=== PATIENT | male | born 1985 | race Caucasian/White ===

== ENCOUNTER 2016-07-29 09:16 | Emergency (ER) | payer SELFPAY ==
[2016-07-29] MEDS ORDERED: Proparacaine 0.5% Ophth Soln 15 ML Bottle EYERT ONE (09:52)
--- NOTE | 2016-07-29 10:05 | EDM.PDOC ---
ED HPI EYE COMPLAINT - General Chief Complaint: Eye Problems Stated Complaint: RT EYE HURTS Time Seen by Provider: 07/29/16 09:50 - History of Present Illness INITIAL COMMENTS - FREE TEXT/NARRATIVE: HISTORY AND PHYSICAL: History of present illness: The patient is a healthy 30-year-old male who presents with complaints of right eyelid swelling and crusting/drainage from the area for the last 2 days. The patient says he does not have any visual blurriness in the right eye and doesn' t have any headache or eye pain. Patient states that he only has discomfort to his eyelid. He has not noticed any redness to the eye itself injection of the sclera and he does not wear glasses or contact lenses. Patient denies any recent head and face or eye trauma and states that at work he does work with chemicals and he could have done something into his eye. The patient denies any foreign body sensation or potential foreign body in his eye. Patient says that when he sleeps he does wake up with a lot of crusting and drainage as well. Review of systems: As per history of present illness and below otherwise all systems reviewed and negative. Past medical history: As per history of present illness and as reviewed below otherwise noncontributory. Surgical history: As per history of present illness and as reviewed below otherwise noncontributory. Social history: No reported history of drug or alcohol abuse. Family history: As per history of present illness and as reviewed below otherwise noncontributory. Physical exam: General: Well-developed well-nourished man who is nontoxic and benefits of been reviewed by me. Visual acuity is right eye 20/15 left eye 20/15 both eyes 20/15 HEENT: Atraumatic, normocephalic, pupils reactive, sclera are noninjected but there is some conjunctival erythema which is mild on the right, negative for conjunctival pallor or scleral icterus, mucous membranes moist, throat clear, neck supple, nontender, trachea midline. EOMs are intact, there is no periorbital erythema or crepitus/bony deformities appreciated, there is no sinus tenderness on palpation. The upper eyelid on the right side edematous originating from the lid margin and extending upward but does not extend to the outer orbital area. There is no gross crusting or drainage appreciated. There is no gross foreign body appreciated on examination Lungs: Clear to auscultation, breath sounds equal bilaterally, chest nontender. Heart: S1S2, regular, negative for clicks, rubs, or JVD. Abdomen: Soft, nondistended, nontender. NABS Genitourinary: Deferred. Rectal: Deferred. Extremities: Atraumatic, negative for cords or calf pain. Neurovascular unremarkable. Neuro: Awake, alert, oriented. Cranial nerves II through XII unremarkable. Cerebellum unremarkable. Motor and sensory unremarkable throughout. Exam nonfocal. Diagnostics: Usual acuity, please see above Therapeutics: [] Impression: Right eye blepharitis Definitive disposition and diagnosis as appropriate pending reevaluation and review of above. - Related Data Allergies/ADRs: Allergies No Known Allergies Allergy (Verified 07/29/16 09:37) Home Meds: Ambulatory Orders Medication Instructions Recorded Confirmed . [No Known Home Meds] 07/29/16 07/29/16 Past Medical History - Past Health History Medical/Surgical History: Denies Medical/Surgical History Social & Family History - Family History Family Medical History: Noncontributory - Tobacco Use Smoking Status *Q: Never Smoker - Recreational Drug Use Recreational Drug Use: No ED ROS GENERAL - Review of Systems Review Of Systems: ROS reveals no pertinent complaints other than HPI. ED EXAM GENERAL W FULL EYE - Physical Exam Exam: See Below (See dictation) Course - Vital Signs Last Recorded V/S: Last Vital Signs Temp 36.7 C 07/29/16 09:37 Pulse 66 07/29/16 09:37 Resp 18 07/29/16 09:37 BP 121/77 07/29/16 09:37 Pulse Ox 97 07/29/16 09:37 - Orders/Labs/Meds Meds: Medications Discontinued Medications Generic Name Dose Route Start Last Admin Trade Name Kemi PRN Reason Stop Dose Admin Proparacaine HCl 2 ml 07/29/16 09:52 Proparacaine 0.5% Ophth Soln EYERT 07/29/16 09:53 ONETIME ONE Departure - Departure Time of Disposition: 10:03 Disposition: Home, Self-Care 01 Condition: good Clinical Impression: Blepharitis of eyelid of right eye Qualifiers: Blepharitis type: unspecified type Eyelid: upper Qualified Code(s): H01.001 - Unspecified blepharitis right upper eyelid Forms: ED Department Discharge Additional Instructions: The following information is given to patients seen in the emergency department who are being discharged to home. This information is to outline your options for follow-up care. We provide all patients seen in our emergency department with a follow-up referral. The need for follow-up, as well as the timing and circumstances, are variable depending upon the specifics of your emergency department visit. If you don't have a primary care physician on staff, we will provide you with a referral. We always advise you to contact your personal physician following an emergency department visit to inform them of the circumstance of the visit and for follow-up with them and/or the need for any referrals to a consulting specialist. The emergency department will also refer you to a specialist when appropriate. This referral assures that you have the opportunity for followup care with a specialist. All of these measure are taken in an effort to provide you with optimal care, which includes your followup. Under all circumstances we always encourage you to contact your private physician who remains a resource for coordinating your care. When calling for followup care, please make the office aware that this follow-up is from your recent emergency room visit. If for any reason you are refused follow-up, please contact the [facility] emergency department at and ask to speak to the emergency department charge nurse. [facility] Primary care- Internal Medicine and Family [address] [address] [facility] [address] [place] [id number] Please use ointment to eyelid margin as we discussed an as directed. Expect ointment to get in and around the eye. Please avoid rubbing eye vigorously and if needed cleanse with mild water and pat dry. Please call and followup with family DrKaren and/or the group billing coordinator using resources given to today. Return to ER as needed and as discussed
[2016-07-29] MEDS ORDERED: Tobramycin 0.3% Ophth Oint 3.5 GM Tube EYERT STA (10:31)
[2016-07-29 11:37] VITALS: BP 121/77
== END 2016-07-29 10:20 | disposition home or self-care (01) ==
LOC: MERGE 09:16 → MW.ED 09:16
DX: H01.001 Unspecified blepharitis right upper eyelid (principal)
CPT/HCPCS: 99282; A9270; 99283

== ENCOUNTER 2019-04-26 14:41 | Emergency (ER) | payer BC ==
[2019-04-26] MEDS ORDERED: Diphtheria,Pertussis(Acell),Tetanus Vaccine 0.5 ML Syringe IM ONE (15:00)
[2019-04-26] MEDS ORDERED: Bupivacaine 0.5% 10 ML SDV INJECT ONE (15:00)
[2019-04-26] MEDS ORDERED: Bupivacaine 0.5% 10 ML SDV ONE (15:28)
--- NOTE | 2019-04-26 15:39 | CR ---
Left tibia and fibula: 2 views of the left tibia and fibula were obtained. Foreign body is identified within the soft tissues of the approximate mid one third level of the lower left extremity. Foreign body is located laterally and anteriorly. Foreign body measures around 8.5 mm. Surrounding soft tissue swelling is noted. No fracture or other bony abnormality is appreciated. Impression: 1. Soft tissue foreign body as noted above. 2. No acute bony abnormality is seen. Diagnostic code #3 This report was dictated in [place] Standard Time
--- NOTE | 2019-04-26 15:52 | EDM.PDOC ---
ED HPI GENERAL MEDICAL PROBLEM - General Chief Complaint: Laceration Stated Complaint: CUT ON LEG Time Seen by Provider: 04/26/19 14:55 Source of Information: Reports: Patient History Limitations: Reports: No Limitations - History of Present Illness INITIAL COMMENTS - FREE TEXT/NARRATIVE: HISTORY OF PRESENT ILLNESS: Patient is a 33-year-old male who presents to the Emergency Department with complaints of laceration. Incident occurred at approximately 11:00am today while using a sledgehammer a piece of metal flew off and entered his left anterior tibial area resulting in a laceration. Alleviating factors: none. Exacerbating factors: none. Denies radiation of pain. . Reports possible retained foreign body. No paresthesias. Tetanus is not up to date. Denies history of diabetes. Home care used: gauze/pressure. No other medical complaints at this time. Has had mild nasal congestion but otherwise been in normal state of health. REVIEW OF SYSTEMS: Other than the symptoms associated with the present events, the following is reported with regard to recent health: General: (-) fever. HENT: (+) congestion. Respiratory: (-) cough. Cardiovascular: (-) chest pain. GI: (-) abdominal pain. Musculoskeletal: (-) bony pain Endocrine: (-) generalized weakness. Neurological: (-) localized weakness. Skin: (+) laceration PAST MEDICAL HISTORY: reviewed as per nursing notes SOCIAL HISTORY: reviewed as per nursing notes, MEDICATIONS: Per nurse's note ALLERGIES: Per nurse's note, reviewed by me PHYSICAL EXAMINATION: GENERALIZED APPEARANCE: well developed, well nourished, in no distress VITAL SIGNS: Per nurse's note, reviewed by me SKIN: approximately 3cm linear laceration with subcutaneous involvement to the left anterior tibial area (-) pulsatile bleeding (-) obvious visible foreign body (+) clean margins (-) active discharge (-) surrounding cellulitis ( -) lymphangitis. (-) fluctuance. HEAD: (-) scalp swelling, EYES: (-) conjunctival pallor, (-) scleral icterus.EOMI ENMT: airway patent: (-) stridor; mucous membranes moist. NECK: supple, (-) stiffness, CHEST AND RESPIRATORY: (-) rales, (-) rhonchi, (-) wheezes; breath sounds equal bilaterally. HEART AND CARDIOVASCULAR: (-) irregularity; (-) murmur, (-) gallop. EXTREMITIES: laceration as above. FROM. 5/5+ strength. NEURO AND PSYCH: sensation intact. Awake, alert. Cranial nerves grossly intact ; strength symmetric. gait steady. PROCEDURE: see below DIAGNOSTICS: xray: FB. no fx. EMERGENCY DEPARTMENT COURSE AND TREATMENT: Patient's condition improved during Emergency Department evaluation. The patient presents with laceration, with evidence of foreign body. No neurovascular injury. Patient's wound was aseptically prepped and draped after the wound had received local wound care including irrigation. FB attempted to be removed by myself without success. Removed successfully by Dr. Nevarez. Pt tolerated well. Repeat xray shows no FB. The wound was closed without incident and the patient tolerated the procedure well. The patient was advised of risk of scar and infection, and it was felt that the risk of infection was outweighed by the need to close this wound for hemostasis and cosmoses. The patient was given wound care precautions and understands to seek medical attention immediately if there are any signs of infection. Otherwise, the patient will follow up with the primary care provider in 1-2 days for wound check and 7 days for suture removal. PLAN AND FOLLOW-UP: Patient received written and verbal instructions regarding this condition. Return to ED immediately with any new or worsening symptoms. Follow up to be arranged by patient with pcp in 1-2 days for wound check and in ED or with pcp in 7 days for suture removal Given discharge precautions. Patient expressed verbal understanding. left rubalcava Pain Score (Numeric/FACES): 4 - Related Data Allergies Allergy/AdvReac Type Severity Reaction Status Date / Time No Known Allergies Allergy Verified 04/26/19 15:00 Home Meds: Home Meds . [No Known Home Meds] 07/29/16 [History] Past Medical History - Past Health History Medical/Surgical History: Denies Medical/Surgical History - Past Surgical History Musculoskeletal Surgical History: Reports: Carpal Tunnel Social & Family History - Family History Family Medical History: Noncontributory - Tobacco Use Smoking Status *Q: Never Smoker - Recreational Drug Use Recreational Drug Use: No ED ROS GENERAL - Review of Systems Review Of Systems: See Below (see dictation) ED EXAM, SKIN/RASH Exam: See Below (see dictation) ED SKIN PROCEDURES - Laceration/Wound Repair Left Leg Distal NVT: Neuro & Vascular Intact Anesthetic Type: Local Local Anesthesia - Bupivicaine (Marcaine): 0.5% Plain Local Anesthetic Volume: 5cc Skin Prep: Providone-Iodine (Betadine) Exploration/Debridement/Repair: Wound Explored, Foreign Material Removed Closed with: Sutures Lac/Wound length In cm: 3 Suture Size: 4-0 # of Sutures: 3 Suture Type: Prolene Sterile Dressing Applied: Nurse Tetanus Status Addressed: Yes Complications: No Course - Vital Signs Last Recorded V/S: Last Vital Signs Temp 97.7 F 04/26/19 14:57 Pulse 107 H 04/26/19 14:57 Resp 16 04/26/19 14:57 BP 148/92 H 04/26/19 14:57 Pulse Ox - Orders/Labs/Meds Orders: Active Orders 24 hr Category Date Time Status Vaccines to be Administered [RC] PER UNIT ROUTINE Care 04/26/19 15:02 Active Wound Care [RC] DAILY Care 04/26/19 15:00 Active Meds: Medications Discontinued Medications Generic Name Dose Route Start Last Admin Trade Name Kemi PRN Reason Stop Dose Admin Bupivacaine HCl 10 ml 04/26/19 15:00 Sensorcaine-Mpf 0.5% INJECT 04/26/19 15:01 ONETIME ONE Bupivacaine HCl Confirm 04/26/19 15:28 Sensorcaine-Mpf 0.5% Administered 04/26/19 15:29 Dose 10 ml .ROUTE .STK-MED ONE Diphtheria/Tetanus/Acell Pertussis 0.5 ml 04/26/19 15:00 Adacel IM 04/26/19 15:01 .ONCE ONE Departure - Departure Time of Disposition: 16:50 Disposition: Home, Self-Care 01 Condition: Good Clinical Impression: Laceration of leg not thigh, left - Discharge Information *PRESCRIPTION DRUG MONITORING PROGRAM REVIEWED*: Not Applicable *COPY OF PRESCRIPTION DRUG MONITORING REPORT IN PATIENT JENNIFER: Not Applicable Instructions: Laceration Care, Adult Referrals: Sammi Razo [Ordering Only Provider] - 2 Days Forms: ED Department Discharge Additional Instructions: The following information is given to patients seen in the emergency department who are being discharged to home. This information is to outline your options for follow-up care. We provide all patients seen in our emergency department with a follow-up referral. The need for follow-up, as well as the timing and circumstances, are variable depending upon the specifics of your emergency department visit. If you don't have a primary care physician on staff, we will provide you with a referral. We always advise you to contact your personal physician following an emergency department visit to inform them of the circumstance of the visit and for follow-up with them and/or the need for any referrals to a consulting specialist. The emergency department will also refer you to a specialist when appropriate. This referral assures that you have the opportunity for follow-up care with a specialist. All of these measure are taken in an effort to provide you with optimal care, which includes your follow-up. Under all circumstances we always encourage you to contact your private physician who remains a resource for coordinating your care. When calling for follow-up care, please make the office aware that this follow-up is from your recent emergency room visit. If for any reason you are refused follow-up, please contact the [facility] Emergency Department at and asked to speak to the emergency department charge nurse. Sepsis Event Note - Evaluation Sepsis Screening Result: No Definite Risk - Focused Exam Vital Signs: Vital Signs Temp Pulse Resp BP 04/26/19 14:57 97.7 F 107 H 16 148/92 H Date Exam was Performed: 04/26/19 Time Exam was Performed: 16:58 - My Orders Last 24 Hours: My Active Orders 04/26/19 15:00 Wound Care [RC] DAILY 04/26/19 15:02 Vaccines to be Administered [RC] PER UNIT ROUTINE - Assessment/Plan Last 24 Hours: My Active Orders 04/26/19 15:00 Wound Care [RC] DAILY 04/26/19 15:02 Vaccines to be Administered [RC] PER UNIT ROUTINE
--- NOTE | 2019-04-26 16:29 | CR ---
Left tibia and fibula: 2 views of the left tibia and fibula were obtained. Comparison: Previous study performed earlier on the same day (3:07 PM). 2 markers have been placed superficially. Distal marker is closest to the foreign body located approximately 1 cm from the foreign body. No additional abnormality is seen other than surrounding soft tissue swelling. Impression: 1. 2 superficial markers. Distal marker is closest to the foreign body and foreign body is approximately 1 cm away from the marker. Diagnostic code #3 This report was dictated in [place] Standard Time
--- NOTE | 2019-04-26 16:54 | CR ---
Left tibia and fibula: 2 views left tibia and fibula were obtained. Comparison: Previous studies performed earlier in the same day. Soft tissue air and soft tissue swelling is noted. Previous foreign body has been removed. No bony abnormality is seen. Impression: 1. Previous foreign body has been removed. 2. Soft tissue air and soft tissue swelling is noted. 3. No bony abnormality is appreciated. Diagnostic code #2 Study was dictated in [place] Standard Time
[2019-04-26 17:52] VITALS: BP 141/72; PULSE 92
== END 2019-04-26 17:02 | disposition home or self-care (01) ==
LOC: MW.ED 14:41
DX: S81.812A Laceration without foreign body, left lower leg, initial encounter (principal); Z23 Encounter for immunization; W27.0XXA Contact with workbench tool, initial encounter; Y93.89 Activity, other specified
CPT/HCPCS: 12002; 73590; 90471; 90715; 99283; J3490

== ENCOUNTER 2019-05-03 10:21 | Emergency (ER) | payer BC ==
[2019-05-03 10:49] VITALS: BP 133/82; PULSE 95
== END 2019-05-03 10:51 | disposition home or self-care (01) ==
LOC: MW.ED 10:21
DX: Z53.21 Procedure and treatment not carried out due to patient leaving prior to being seen by health care provider (principal)
CPT/HCPCS: 99281